=== PATIENT | male | born 1980 | race Caucasian/White ===

== ENCOUNTER 2023-09-17 14:59 | Outpatient (RCR) | payer BC, SELFPAY | END 2023-12-30 15:33 | disposition home or self-care (01) | PROVIDERS: PCP Surgery; Visit Provider Physician Assistant | DX: M54.50 Low back pain, unspecified (principal); M54.6 Pain in thoracic spine; M25.659 Stiffness of unspecified hip, not elsewhere classified; Z51.89 Encounter for other specified aftercare | CPT/HCPCS: 97110; 97161 ==

== ENCOUNTER 2024-10-25 09:52 | Outpatient (RCR) | payer BC, SELFPAY | END 2025-01-24 14:10 | disposition home or self-care (01) | PROVIDERS: PCP Surgery; Visit Provider Student in an Organized Health Care Education/Training Program | DX: S46.002A Unspecified injury of muscle(s) and tendon(s) of the rotator cuff of left shoulder, initial encounter (principal); M25.512 Pain in left shoulder; M25.552 Pain in left hip; Z51.89 Encounter for other specified aftercare | CPT/HCPCS: 97110; 97161 ==